=== PATIENT | female | born 1950 | race American Indian/Alaskan Native ===

== ENCOUNTER 2018-09-10 02:05 | Inpatient (IN) | payer MEDICARE ==
--- NOTE | 2018-09-10 02:36 | Cat Scan Report ---
CT head/brain wo con INDICATION / CLINICAL INFORMATION: MAIN: STROKE ALERT. TECHNIQUE: All CT scans at this location are performed using CT dose reduction for ALARA by means of automated e xposure control. COMPARISON: None available. FINDINGS: Ventricle size is normal. There is a subtle area of low density seen in the high right medial parieta l region (images 41 through 43). No mass or mass effect is seen. There is no evidence of intracranial hemorrhage. Visualized paranasal sinuses are clear. IMPRESSION: Subtle area of low density in the high right parietal region which could represent early infarction. Signer Name: Max Omalley MD FACR Signed: 09/10/2018 2:31 AM Workstation Name: [id number]
--- NOTE | 2018-09-10 02:42 | Emergency Department Report ---
HPI - General Chief Complaint: Neuro Symptoms/Deficit - HPI HPI: [facility] Date of Service: 09/10/2018 02:12:15 Impression: RO Acute Ischemic Stroke TIA Metrics: Last Known Well: Unknown Start Time: 09/10/2018 02:12:15 Arrival Time: 09/10/2018 02:05:00 Stamp Time: 09/10/2018 02:12:15 Time First Login Attempt: 09/10/2018 02:16:08 Video Start Time: 09/10/2018 02:16:08 History of Present Illness: Patient is a 68 years old Female who presents with symptoms of 68 yof with hx of TIA, htn, presents with Left leg numbness and feeling like her heart is racing. She became concerned that the numbness is worse and came in through triage. She states she has numbness in her leg for some time but it felt worse today. She states her previous TIA was related to feeling anxious as well but she couldn't elaborate on any focal sxs with that TIA. She takes an asa daily per her recollection. CT scan head per my review is negative for acute process. Stroke alert called from Triage Examination: 1A: Level of Consciousness - Alert; keenly responsive + 0 1B: Ask Month and Age - Both Questions Right + 0 1C: Blink Eyes & Squeeze Hands - Performs Both Tasks + 0 2: Test Horizontal Extraocular Movements - Normal + 0 3: Test Visual Ernst - No Visual Loss + 0 4: Test Facial Palsy (Use Grimace if Obtunded) - Normal symmetry + 0 5A: Test Left Arm Motor Drift - No Drift for 10 Seconds + 0 5B: Test Right Arm Motor Drift - No Drift for 10 Seconds + 0 6A: Test Left Leg Motor Drift - No Drift for 5 Seconds + 0 6B: Test Right Leg Motor Drift - No Drift for 5 Seconds + 0 7: Test Limb Ataxia (FNF/Heel-Larose) - No Ataxia + 0 8: Test Sensation - Normal; No sensory loss + 0 9: Test Language/Aphasia - Normal; No aphasia + 0 10: Test Dysarthria - Normal + 0 11: Test Extinction/Inattention - No abnormality + 0 NIHSS Score: 0 ED Past Medical Hx - Medications Home Medications: Home Medications Medication Instructions Recorded Confirmed Last Taken Type Atenolol [Tenormin] 12.5 mg PO DAILY 09/10/18 09/10/18 09/09/18 History Lisinopril [Zestril] 20 mg PO QDAY 09/10/18 09/10/18 09/09/18 History hydroCHLOROthiazide 25 mg PO DAILY 09/10/18 09/10/18 09/09/18 History [Hydrochlorothiazide] ED Review of Systems ROS: Stated complaint: LEFT SIDE WEAKNESS Other details as noted in HPI Physical Exam - Physical Exam Vital Signs: Vital Signs 09/10/18 09/10/18 02:14 02:36 Temperature 98.3 F Pulse Rate 82 71 Respiratory 20 18 Rate Blood Pressure 170/74 135/59 [Left] O2 Sat by Pulse 100 97 Oximetry ED Course Vital Signs 09/10/18 09/10/18 02:14 02:36 Temperature 98.3 F Pulse Rate 82 71 Respiratory 20 18 Rate Blood Pressure 170/74 135/59 [Left] O2 Sat by Pulse 100 97 Oximetry ED Medical Decision Making - Medical Decision Making Symptoms: 68 yof with hx of TIA, htn, presents with Left leg numbness and feeling like her heart is racing. NIHSS Start Assessment Time: 09/10/2018 02:25:14 Patient is not a candidate for tPA. Video End Time: 09/10/2018 02:27:00 CT head showed no acute hemorrhage or acute core infarct. CT head was reviewed. Advanced imaging was not obtained as the presentation was not suggestive of Large Vessel Occlusive Disease. ER physician not notified of the decision on thrombolytics management. Comments: Patient is not iv tpa candidate as exam is non localizing and sxs resolved. Our recommendations are outlined below. Recommendations: Antiplatelet Therapy Recommended Recommended Scan: MRI Head Carotid Dopplers Echocardiogram - Transthoracic Echocardiogram Lipid Panel to Be Obtained, if Not Done in the Last Three Months DVT prophylaxis: Choice of Primary Team Disposition: Sign Out Sign Out: Discussed with Emergency Department Provider Discussed with Primary Attending Patient was informed the Neurology Consult would happen via TeleHealth consult by way of interactive audio and video telecommunications and consented to receiving care in this manner. Due to the immediate potential for life-threatening deterioration due to underlying acute neurologic illness, I spent 35 minutes providing critical care. This time includes time for face to face visit via telemedicine, review of city hospital records, imaging studies and discussion of findings with providers, the patient and/or family. Dr Chino Pal [facility] Critical care attestation.: If time is entered above; I have spent that time in minutes in the direct care of this critically ill patient, excluding procedure time. ED Disposition Clinical Impression: TIA (transient ischemic attack) Disposition: DC-09 OP ADMIT IP TO THIS HOSP Is pt being admited?: Yes Does the pt Need Aspirin: Yes Condition: Stable
--- NOTE | 2018-09-10 03:58 | Emergency Department Report ---
ED Neuro Deficit HPI - General Chief Complaint: Neuro Symptoms/Deficit Stated Complaint: LEFT SIDE WEAKNESS Time Seen by Provider: 09/10/18 02:31 Source: patient Mode of arrival: Ambulatory Limitations: No Limitations - History of Present Illness Initial Comments: Patient is 68 years old female with history of hypertension, diabetes and a TIA. Patient presented to the ER complaining of sudden onset of left leg numbness started exactly at 2:12 AM. Patient denied any weakness. No speech problem or facial droop. Patient stated that she felt heart racing but denied any chest pain. Patient evaluated immediately by neurologist Dr. Pal who advised patient needed to be admitted to the hospital for stroke workup. -: This morning Location: other (left leg numbness) Place: home Context: sudden onset Associated Symptoms: denies other symptoms - Related Data Home Medications: Home Medications Medication Instructions Recorded Confirmed Last Taken Atenolol [Tenormin] 12.5 mg PO DAILY 09/10/18 09/10/18 09/09/18 Lisinopril [Zestril] 20 mg PO QDAY 09/10/18 09/10/18 09/09/18 hydroCHLOROthiazide 25 mg PO DAILY 09/10/18 09/10/18 09/09/18 [Hydrochlorothiazide] Allergies/Adverse Reactions: Allergies Allergy/AdvReac Type Severity Reaction Status Date / Time No Known Allergies Allergy Unverified 09/10/18 02:11 ED Review of Systems ROS: Stated complaint: LEFT SIDE WEAKNESS Other details as noted in HPI Comment: All other systems reviewed and negative Constitutional: denies: chills, fever Respiratory: denies: cough, shortness of breath, SOB with exertion Cardiovascular: denies: chest pain, palpitations Gastrointestinal: denies: abdominal pain, nausea, vomiting Neurological: numbness. denies: headache, weakness, paresthesias, confusion, abnormal gait ED Past Medical Hx - Past Medical History Previous Medical History?: Yes Hx Hypertension: Yes Hx CVA: Yes Hx Diabetes: Yes Additional medical history: stomach ulcer, - Social History Smoking Status: Never Smoker Substance Use Type: None - Medications Home Medications: Home Medications Medication Instructions Recorded Confirmed Last Taken Type Atenolol [Tenormin] 12.5 mg PO DAILY 09/10/18 09/10/18 09/09/18 History Lisinopril [Zestril] 20 mg PO QDAY 09/10/18 09/10/18 09/09/18 History hydroCHLOROthiazide 25 mg PO DAILY 09/10/18 09/10/18 09/09/18 History [Hydrochlorothiazide] ED Neuro Physical Exam - General Limitations: No Limitations General appearance: alert, in no apparent distress Suspected Stroke: Yes - Head Head exam: Present: atraumatic, normocephalic, normal inspection - Eye Eye exam: Present: normal appearance, PERRL - ENT ENT exam: Present: normal exam, normal orophraynx, mucous membranes moist - Neck Neck exam: Present: normal inspection, full ROM. Absent: tenderness, meningismus - Respiratory Respiratory exam: Present: normal lung sounds bilaterally - Cardiovascular Cardiovascular Exam: Present: regular rate, normal rhythm, normal heart sounds - GI/Abdominal GI/Abdominal exam: Present: soft, normal bowel sounds. Absent: distended, tenderness, guarding, rebound, rigid, organomegaly, mass, bruit, pulsatile mass, hernia - Extremities Exam Extremities exam: Present: normal inspection, full ROM, normal capillary refill. Absent: tenderness, pedal edema, joint swelling, calf tenderness - Back Exam Back exam: Present: normal inspection, full ROM. Absent: CVA tenderness (R), CVA tenderness (L), muscle spasm - Neurological Exam Neurological exam: Present: alert, oriented X3, CN II-XII intact, normal gait, reflexes normal - NIHSS Assessment Interval: Baseline 1a. Level of Consciousness: alert/keenly responsive 1b. LOC Questions: answers both correctly 1c. LOC Commands: performs tasks correctly 2. Best Gaze: normal 3. Visual: no visual loss 4. Facial Palsy: normal symmetrical movement 5b. Motor Arm Right: no drift 5a. Motor Arm Left: no drift 6a. Motor Leg Left: no drift 6b. Motor Leg Right: no drift 7. Limb Ataxia: absent 8. Sensory: normal 9. Best Language: no aphasia 10. Dysarthria: normal 11. Extinction/Inattention: no abnormality Total Score: 0 Stroke Severity: No Stroke Symptoms - Psychiatric Psychiatric exam: Present: normal mood - Skin Skin exam: Present: warm, intact, normal color ED Course Vital Signs 09/10/18 09/10/18 09/10/18 02:14 02:36 03:52 Temperature 98.3 F Pulse Rate 82 71 64 Respiratory 20 18 18 Rate Blood Pressure 170/74 135/59 116/52 [Left] O2 Sat by Pulse 100 97 98 Oximetry - Lab Data Lab Results 09/10/18 Range/Units 02:17 POC Glucose 117 H (70-105) Critical Care Time: Yes Critical care time in (mins) excluding proc time.: 30 Critical care attestation.: If time is entered above; I have spent that time in minutes in the direct care of this critically ill patient, excluding procedure time. ED Disposition Clinical Impression: TIA (transient ischemic attack) Disposition: - OP ADMIT IP TO THIS HOSP Is pt being admited?: Yes Condition: Stable
[2018-09-10 04:56] LABS: Basophils % (Auto) 0.6 % (0.0-1.8); Eosinophils # (Auto) 0.1 K/mm3 (0.0-0.4); Eosinophils % (Auto) 1.4 % (0.0-4.3); Hematocrit 34.9 % (30.3-42.9); Hemoglobin 11.5 gm/dl (10.1-14.3); Lymphocytes # (Auto) 2.3 K/mm3 (1.2-5.4); Lymphocytes % (Auto) 33.5 % (13.4-35.0); Mean Corpuscular HGB Conc 33 % (30-34); Mean Corpuscular Volume 84 fl (79-97); Monocytes # (Auto) 0.5 K/mm3 (0.0-0.8); Monocytes % (Auto) 7.8 % (0.0-7.3); Platelet Count 296 K/mm3 (140-440); Red Blood Count 4.18 M/mm3 (3.65-5.03); Red Cell Distribution Width 14.5 % (13.2-15.2)
[2018-09-10] MEDS ORDERED: SODIUM CHLORIDE FLUSH SYRINGE 10 ML IV PRN (05:15)
[2018-09-10] MEDS ORDERED: TYLENOL PO PRN (05:15)
[2018-09-10] MEDS ORDERED: DULCOLAX PR PRN (05:15)
[2018-09-10] MEDS ORDERED: ZOFRAN IV PRN (05:15)
--- NOTE | 2018-09-10 05:15 | History and Physical Report ---
History of Present Illness Date of examination: 09/10/18 History of present illness: 68 year-old woman with a history of hypertension, DM, h/o CVA was brought to the emergency room with complaints of left leg numbness. She states that she has been experiencing left leg numbness for more than 1 year, unclear if numbness worsen Review of systems Constitutional: no weight loss Ears, eyes, nose, mouth and throat: no nasal congestion, no nasal discharge, no sinus pressure, no vision change, no red eye. Neck: No neck pain or rigidity. Cardiovascular: no palpitations, chest pain Respiratory: no cough, shortness of breath Gastrointestinal: no hematochezia, abdominal pain Genitourinary : no frequency , no hematuria Musculoskeletal: no joint swelling or muscle ache Integumentary: no rash, no pruritis Neurological: + parathesias, no focal weakness Endocrine: no cold or heat intolerance, no polyuria or polydipsia Hematologic/Lymphatic: no easy bruising, no easy bleeding, no gland swelling Allergic/Immunologic: no urticaria, no angioedema. PAST MEDICAL HISTORY:hypertension, diabetes, h/o CVA PAST SURGICAL HISTORY: None SOCIAL HISTORY: no alcohol, tobacco, no drug use FAMILY HISTORY: Hypertension Medications and Allergies Allergies Allergy/AdvReac Type Severity Reaction Status Date / Time No Known Allergies Allergy Unverified 09/10/18 02:11 Home Medications Medication Instructions Recorded Confirmed Last Taken Type Aspirin EC 81 mg PO QDAY #30 tablet. 09/11/18 Unknown Rx AtorvaSTATin [Lipitor] 40 mg PO QHS #30 tablet 09/11/18 Unknown Rx Lisinopril [Zestril TAB] 10 mg PO QDAY #30 tablet 09/11/18 Unknown Rx Pantoprazole [Protonix] 40 mg PO QDAY #30 tablet 09/11/18 Unknown Rx Clopidogrel [Plavix] 75 mg PO QDAY #30 tablet 09/12/18 Unknown Rx Exam - Physical Exam Narrative exam: Gen. appearance: Patient lying in bed, no apparent distress HEENT: Normocephalic, atraumatic, pupils equally round and reactive to light, extraocular movement intact, and no sclericterus,. No JVD or thyromegaly or nodule,neck supple, no carotid bruit ,mucous membranes moist, no exudate or erythema Heart: S1, S2, regular rate and rhythm Lungs: Clear to auscultation bilaterally, breathing comfortable Abdomen: Positive bowel sounds, nontender, nondistended, no organomegaly Extremity: No edema, cyanosis, clubbing Skin: No rash, nodules, warm, dry Neuro: Oriented 3, cranial nerves II-12 intact, speech is fluent,motor intact, +paresthesia on the left leg - Constitutional Vitals: Temp Pulse Resp BP Pulse Ox 98.3 F 64 18 116/52 98 09/10/18 02:14 09/10/18 03:52 09/10/18 03:52 09/10/18 03:52 09/10/18 03:52 Results - Labs CBC & Chem 7: 09/10/18 04:44 09/10/18 08:59 Labs: Abnormal lab results 09/10/18 09/10/18 Range/Units 02:17 04:44 MCH 27 L (28-32) pg [place] % (Auto) 7.8 H (0.0-7.3) % POC Glucose 117 H (70-105) - Imaging and Cardiology CT scan - chest: report reviewed Assessment and Plan Assessment Acute CVA Hypertersion Diabetes H/o CVA Plan Admit to medicine Do neuro checks, swallow screen MR head, neck, echo Consult neurology, PT/OT Start aspirin, statin IV hydralazine for blood pressure control Check fingersticks, start sliding scale DVT prophalaxis
[2018-09-10] MEDS ORDERED: D50W (25GM) Syringe IV PRN ×2 (05:18→06:32)
[2018-09-10 05:24] LABS: INR 0.94 (0.87-1.13)
[2018-09-10 05:25] LABS: Thrombin Time 17.3 Sec. (15.1-19.6)
[2018-09-10] MEDS ORDERED: APRESOLINE IV PRN (06:34)
[2018-09-10] MEDS: HumaLOG SUB-Q SCH ×4 (09:23→21:03)
--- NOTE | 2018-09-10 09:42 | Event Note ---
Date: 09/10/18 Patient seen and examined 68-year-old female with a history of hypertension presented with strokelike symptoms Admitted with stroke workup We'll follow MRI, 2-D echo and carotid Doppler results Monitor clinically, follow PT OT and ST evaluation
[2018-09-10] MEDS ORDERED: ASPIRIN PO SCH (10:00)
[2018-09-10] MEDS: ASPIRIN PO SCH ×2 (10:00→11:12)
[2018-09-10] MEDS ORDERED: LOVENOX SUB-Q SCH (10:00)
[2018-09-10] MEDS ORDERED: ATIVAN IV PRN ×2 (10:02→10:03)
--- NOTE | 2018-09-10 10:31 | Progress Note ---
Subjective Date of service: 09/10/18 Interval history: very clear deep white matter stroke of the right hemisphere is noted await MRI prior hx to be reviewed Objective - Vital Sign Vital Signs - 12hr 09/10/18 09/10/18 09/10/18 02:14 02:36 02:57 Temperature 98.3 F Pulse Rate 82 71 62 Respiratory 20 18 13 Rate Blood Pressure 135/59 Blood Pressure 170/74 135/59 [Left] O2 Sat by Pulse 100 97 Oximetry 09/10/18 09/10/18 09/10/18 03:00 03:16 03:30 Temperature Pulse Rate 61 60 60 Respiratory 16 15 13 Rate Blood Pressure 135/59 117/53 117/53 Blood Pressure [Left] O2 Sat by Pulse Oximetry 09/10/18 09/10/18 09/10/18 03:46 03:52 04:00 Temperature Pulse Rate 61 64 60 Respiratory 15 18 15 Rate Blood Pressure 116/52 116/52 Blood Pressure 116/52 [Left] O2 Sat by Pulse 98 Oximetry 09/10/18 09/10/18 09/10/18 04:16 04:30 04:46 Temperature Pulse Rate 60 60 61 Respiratory 14 12 16 Rate Blood Pressure 126/56 126/56 138/60 Blood Pressure [Left] O2 Sat by Pulse Oximetry 09/10/18 09/10/18 09/10/18 05:00 05:16 05:30 Temperature Pulse Rate 61 63 60 Respiratory 16 15 14 Rate Blood Pressure 138/60 126/53 126/53 Blood Pressure [Left] O2 Sat by Pulse Oximetry 09/10/18 09/10/18 09/10/18 05:46 06:00 06:10 Temperature Pulse Rate 62 72 64 Respiratory 16 16 15 Rate Blood Pressure 122/56 122/56 119/59 Blood Pressure [Left] O2 Sat by Pulse Oximetry 09/10/18 09:01 Temperature 97.9 F Pulse Rate 86 Respiratory 18 Rate Blood Pressure 137/68 Blood Pressure [Left] O2 Sat by Pulse 100 Oximetry - Laboratory Findings CBC and BMP: 09/10/18 04:44 09/10/18 08:59 Abnormal Lab Findings: Abnormal Labs 09/10/18 09/10/18 09/10/18 02:17 04:44 04:44 MCH 27 L [place] % (Auto) 7.8 H POC Glucose 117 H Total Creatine Kinase 159 H
--- NOTE | 2018-09-10 11:45 | Magnetic Resonance Report ---
MR brain wo con INDICATION / CLINICAL INFORMATION: 68 years Female; stroke. TECHNIQUE: Multiplanar, multisequence MR images of the brain were obtained. COMPARISON: None available. FINDINGS: BRAIN / INTRACRANIAL CONTENTS: No acute ischemia, acute hemorrhage, mass effect, midline shift, or hy drocephalus. No chronic infarct or atrophy. There are mild areas of increased signal intensity on FLAIR imaging in the white matter of the cerebr al hemispheres. These are nonspecific findings and may be related to microangiopathy (hypertension, d iabetes, atherosclerosis), given the patient's age. CRANIOCERVICAL JUNCTION: No significant abnormality. VASCULAR FLOW-VOIDS: Slow or no flow suggested in the nondominant left vertebral artery. ORBITS: No significant abnormality of visualized orbits. SINUSES / MASTOIDS: Mucosal thickening in the ethmoids and mastoid air cells. 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 IMPRESSION: 1. No focal mass, hemorrhage, hydrocephalus, or acute ischemia. Signer Name: Hunter Masters MD, III Signed: 09/10/2018 11:41 AM Workstation Name: [id number]
--- NOTE | 2018-09-10 12:03 | Magnetic Resonance Report ---
MR MRA/MRV head wo con INDICATION / CLINICAL INFORMATION: 68 years Female; stroke. 68-year-old female with new onset, bilateral lower extremity numbness and ti ngling TECHNIQUE: 3-D time of flight. NASCET type criteria used to evaluate stenoses. Motion artifact COMPARISON: None available. FINDINGS: INTERNAL CAROTID ARTERIES: Focal areas of high-grade narrowing suggested in the communicating portion s of both internal carotid arteries. VERTEBROBASILAR SYSTEM: The dominant right vertebral and basilar arteries appear to be widely patent. Slow or no flow suggested in the nondominant left vertebral artery. DISTAL BRANCHES: Short segment, moderate to high-grade narrowing suggested at the origin of the A1 se gment on the left. ANEURYSM: None identified. IMPRESSION: 1. Multiple areas of narrowing identified, as described above. 2. Slow or no flow suggested in the nondominant left vertebral artery. Signer Name: Hunter Masters MD, III Signed: 09/10/2018 11:59 AM Workstation Name: [id number]
--- NOTE | 2018-09-10 12:08 | Progress Note ---
Subjective Date of service: 09/10/18 Interval history: I went over the MRI of the barin and it is normal to my reeview and formal reports as well the MRA is difficult to comment on this may be basis for the TIA's we note ECHO and u/s Objective - Vital Sign Vital Signs - 12hr 09/10/18 09/10/18 09/10/18 02:14 02:36 02:57 Temperature 98.3 F Pulse Rate 82 71 62 Pulse Rate [ Apical] Pulse Rate [ Left Radial] Pulse Rate [ Right Radial] Respiratory 20 18 13 Rate Blood Pressure 135/59 Blood Pressure 170/74 135/59 [Left] O2 Sat by Pulse 100 97 Oximetry 09/10/18 09/10/18 09/10/18 03:00 03:16 03:30 Temperature Pulse Rate 61 60 60 Pulse Rate [ Apical] Pulse Rate [ Left Radial] Pulse Rate [ Right Radial] Respiratory 16 15 13 Rate Blood Pressure 135/59 117/53 117/53 Blood Pressure [Left] O2 Sat by Pulse Oximetry 09/10/18 09/10/18 09/10/18 03:46 03:52 04:00 Temperature Pulse Rate 61 64 60 Pulse Rate [ Apical] Pulse Rate [ Left Radial] Pulse Rate [ Right Radial] Respiratory 15 18 15 Rate Blood Pressure 116/52 116/52 Blood Pressure 116/52 [Left] O2 Sat by Pulse 98 Oximetry 09/10/18 09/10/18 09/10/18 04:16 04:30 04:46 Temperature Pulse Rate 60 60 61 Pulse Rate [ Apical] Pulse Rate [ Left Radial] Pulse Rate [ Right Radial] Respiratory 14 12 16 Rate Blood Pressure 126/56 126/56 138/60 Blood Pressure [Left] O2 Sat by Pulse Oximetry 09/10/18 09/10/18 09/10/18 05:00 05:16 05:30 Temperature Pulse Rate 61 63 60 Pulse Rate [ Apical] Pulse Rate [ Left Radial] Pulse Rate [ Right Radial] Respiratory 16 15 14 Rate Blood Pressure 138/60 126/53 126/53 Blood Pressure [Left] O2 Sat by Pulse Oximetry 09/10/18 09/10/18 09/10/18 05:46 06:00 06:10 Temperature Pulse Rate 62 72 64 Pulse Rate [ Apical] Pulse Rate [ Left Radial] Pulse Rate [ Right Radial] Respiratory 16 16 15 Rate Blood Pressure 122/56 122/56 119/59 Blood Pressure [Left] O2 Sat by Pulse Oximetry 09/10/18 09/10/18 07:19 09:01 Temperature 97.9 F Pulse Rate 86 Pulse Rate [ 82 Apical] Pulse Rate [ 82 Left Radial] Pulse Rate [ 82 Right Radial] Respiratory 18 18 Rate Blood Pressure 137/68 Blood Pressure [Left] O2 Sat by Pulse 99 100 Oximetry - Laboratory Findings CBC and BMP: 09/10/18 04:44 09/10/18 08:59 Abnormal Lab Findings: Abnormal Labs 09/10/18 09/10/18 09/10/18 02:17 04:44 04:44 MCH 27 L [place] % (Auto) 7.8 H POC Glucose 117 H Total Creatine Kinase 159 H
[2018-09-10] MEDS: LOVENOX SUB-Q SCH (13:14)
[2018-09-11 06:04] LABS: Chol/HDL Ratio 5.04 %
[2018-09-11] MEDS: MILK OF MAGNESIA PO PRN ×2 (06:43→20:53)
[2018-09-11] MEDS: HumaLOG SUB-Q SCH ×4 (08:48→22:47)
--- NOTE | 2018-09-11 08:56 | Progress Note ---
Subjective Date of service: 09/11/18 Interval history: went over the MRA and she will need CTA of head and neck.... the MRA reports suggests high grade stenosis but will assess further she has had TIA 's before Objective - Vital Sign Vital Signs - 12hr 09/11/18 09/11/18 09/11/18 00:03 03:36 04:36 Temperature 98.1 F 98.5 F Pulse Rate 65 65 65 Respiratory 18 18 Rate Blood Pressure 132/72 153/70 O2 Sat by Pulse 97 100 Oximetry 09/11/18 09/11/18 09/11/18 08:14 08:31 08:40 Temperature 97.7 F Pulse Rate 70 Respiratory 15 20 Rate Blood Pressure 136/68 O2 Sat by Pulse 97 100 Oximetry - Laboratory Findings CBC and BMP: 09/10/18 04:44 09/10/18 08:59 Abnormal Lab Findings: Abnormal Labs 09/10/18 09/10/18 09/10/18 02:17 04:44 04:44 MCH 27 L [place] % (Auto) 7.8 H POC Glucose 117 H Total Creatine Kinase 159 H Cholesterol LDL Cholesterol Direct 09/10/18 09/10/18 09/10/18 12:36 16:09 20:24 MCH [place] % (Auto) POC Glucose 245 H 69 L 115 H Total Creatine Kinase Cholesterol LDL Cholesterol Direct 09/11/18 09/11/18 04:37 07:53 MCH [place] % (Auto) POC Glucose 112 H Total Creatine Kinase Cholesterol 227 H LDL Cholesterol Direct 172 H
[2018-09-11] MEDS: ASPIRIN PO SCH (09:58)
[2018-09-11] MEDS: LOVENOX SUB-Q SCH (09:58)
--- NOTE | 2018-09-11 15:30 | Discharge Summary ---
Providers - Providers Date of Admission: 09/10/18 06:15 Date of discharge: 09/11/18 Attending physician: SARA JEAN 09/10/18 Consult to Physician [CONS] Routine Comment: Consulting Provider: LINDSAY GUO Physician Instructions: Reason For Exam: cva 09/10/18 05:15 Occupational Therapy Evaluate and Treat [CONS] Routine Comment: Reason For Exam: Neuro deficits Physical Therapy Evaluation and Treat [CONS] Routine Comment: Reason For Exam: Neuro deficits Primary care physician: VIVEK LAINEZ Hospitalization Condition: Stable Hospital course: Discharge diagnosis: TIA Hypertersion Diabetes H/o CVA Disposition: DC-01 TO HOME OR SELFCARE Time spent for discharge: 34 minutes Core Measure Documentation - Palliative Care Palliative Care/ Comfort Measures: Not Applicable - Stroke Discharge Requirements Statin for LDL = or >70 mg/dl on DC: Yes Anticoag for atrial fib/atrial flutter: Not Applicable Antithrombotic for ischemic stroke: Yes Exam - Constitutional Vitals: Temp Pulse Resp BP Pulse Ox 97.7 F 70 17 136/68 100 09/11/18 08:40 09/11/18 08:40 09/11/18 09:31 09/11/18 08:40 09/11/18 08:40 General appearance: Present: no acute distress, well-nourished - EENT Eyes: Present: PERRL ENT: hearing intact, clear oral mucosa - Neck Neck: Present: supple, normal ROM - Respiratory Respiratory effort: normal Respiratory: bilateral: CTA - Cardiovascular Heart Sounds: Present: S1 & S2. Absent: rub, click - Extremities Extremities: pulses symmetrical, No edema Peripheral Pulses: within normal limits - Abdominal General gastrointestinal: Present: soft, non-tender, non-distended, normal bowel sounds - Integumentary Integumentary: Present: clear, warm, dry - Musculoskeletal Musculoskeletal: gait normal, strength equal bilaterally - Psychiatric Psychiatric: appropriate mood/affect, intact judgment & insight - Neurologic Neurologic: CNII-XII intact, moves all extremities Plan Activity: advance as tolerated Weight Bearing Status: Weight Bear as Tolerated Diet: low fat, low salt Follow up with: VIVEK LAINEZ MD [Primary Care Provider] - 7 Days Prescriptions: AtorvaSTATin [Lipitor] 40 mg PO QHS #30 tablet Aspirin EC 81 mg PO QDAY #30 tablet.
[2018-09-11] MEDS ORDERED: MIRALAX 3350 PO PRN (16:00)
[2018-09-11] MEDS: COLACE PO SCH (20:52)
[2018-09-12] MEDS: COLACE PO SCH ×2 (05:47→09:02)
[2018-09-12 08:16] VITALS: BP 143/66
[2018-09-12] MEDS: HumaLOG SUB-Q SCH ×3 (08:51→17:20)
--- NOTE | 2018-09-12 08:58 | Cat Scan Report ---
CTA neck without and with intravenous contrast material CLINICAL HISTORY: TIA TECHNIQUE: Following acquisition of a timing bolus 0.625 mm thick contiguous axial scans were obtained from aort ic arch to the skull base during rapid bolus intravenous contrast infusion. In addition to evaluation of axial source images multiplanar reconstructions were produced and reviewed for this report. Three -dimensional reconstructions were produced utilizing an independent workstation. These were also revi ewed for this report. FINDINGS: No abnormalities are seen at the origins of the great vessels. Aorta: No abnormalities are identified at the origins of the great vessels. Left carotid artery: Left common carotid artery has an unremarkable appearance. Extensively calcified atherosclerotic plaque is present at the carotid bifurcation extending up into the proximal LICA. Ba sed on massive like criteria there is a less than 50% stenosis at the carotid bifurcation. The remain concha of the cervical segments of the left internal carotid artery have an unremarkable appearance. Right carotid artery: No abnormalities are seen along the course of the right common carotid artery. Minimal calcified atherosclerotic plaque is observed along the posterior aspect of the carotid bifurc ation with no indication of stenosis. Cervical segments of the R ICA have a normal appearance. The right vertebral artery is dominant. Intermittent contrast opacification of a smaller left vertebr al artery is observed. The left vertebral artery is irregular in contour. Possibility of chronic diss ection could be considered. There is no indication of an intimal flap within this vessel. There is no indication of pseudoaneurysm formation. There is not significant contributor addition to the basilar artery from the left vertebral artery. The degree of stenosis, if any, is determined utilizing NASCET like criteria. In this case there is a less than 50% stenosis at the origin of the LICA. Evaluation of the nonvascular soft tissue structures reveal no abnormality. There is no indication of cervical lymphadenopathy. No abnormalities are seen along the course of the airway. Visualized porti ons of the parotid glands and the submandibular salivary glands have a normal appearance. Thyroid gla nd has a normal appearance. Evaluation of the lung apices reveals no evidence of lung nodule or infil trate. Evaluation of the cervical spine revealed no significant abnormalities. Incidental note is mad e of changes of cataract surgery on the right. IMPRESSION: 1. Calcified atherosclerotic plaque contributes to less than 50% stenosis at the origin of the left i nternal carotid artery. 2. Abnormal appearing left vertebral artery as described above. The possibility of chronic dissection could be considered. Contrast dose report: Omnipaque 350: 100 ml, administered intravenously All CT examinations performed at this facility utilize modulated dose reduction, iterative reconstruc tion or weight-based dosing, as appropriate, to obtain a radiation dose which is as low as can reason ably be achieved. Signer Name: Cordell Hernandez MD Signed: 09/12/2018 8:54 AM Workstation Name: [id number]
[2018-09-12] MEDS: ASPIRIN PO SCH (09:02)
[2018-09-12] MEDS: LOVENOX SUB-Q SCH (09:02)
--- NOTE | 2018-09-12 09:14 | Cat Scan Report ---
CTA head with IV contrast INDICATION: TIA, left-sided weakness and tingling.. TECHNIQUE: CTA head with IV contrast. The patient received 100 mL of IV Omnipaque 350. All CT scans at this loca tion are performed using CT dose reduction for ALARA by means of automated exposure control. 3 plane MIP reconstructions were produced. COMPARISON: Previous MRA head on 09/10/2018. FINDINGS: Vascular findings: The right vertebral artery is developmentally dominant. The left vertebral artery essentially ends in the left PICA. This is often developmental in origin rather than secondary to vertebral artery occlu brodie. The remainder of the basilar artery and posterior circulation arteries appear to be patent. In the anterior circulation, there is high-grade flow-limiting stenosis of about 80-90% of the right supraclinoid internal carotid artery due to mixed plaque. Similar stenosis is also seen in the left s upraclinoid ICA. Bilateral middle cerebral arteries and anterior cerebral arteries demonstrate no sig nificant stenosis. No intracranial aneurysms are notified. Nonvascular findings: The brain appears unchanged, without evidence of acute hemorrhage, brain edema, mass effect, or hydro cephalus. IMPRESSION: 1. High-grade flow-limiting stenosis in the bilateral supraclinoid internal carotid arteries of about 80-90%. 2. The left vertebral artery essentially ends in the left PICA. This is often a developmental variant rather than evidence of left vertebral artery occlusion. Signer Name: Memo Diaz MD Signed: 09/12/2018 9:10 AM Workstation Name: [id number]
--- NOTE | 2018-09-12 09:49 | Progress Note ---
Assessment and Plan TIA Hypertersion Diabetes H/o CVA - CT head/MRI brain w/o any acute CVA - cont aspirin, statin, neurology following - ordered CTA head/neck to assess carotid arteries and IC vessels - pending - Monitor BP, SSI for maintaing BG - Lovenox for DVt Px Disposition: home following CTA head/neck result Subjective Date of service: 09/11/18 Interval history: Patient seen and examined tolerating diet No new complaint except ask for stool softner Objective - Constitutional Vitals: Vital Signs - 12hr 09/11/18 09/12/18 09/12/18 23:39 03:44 06:01 Temperature 97.5 F L 98.1 F Pulse Rate 61 61 61 Respiratory 16 16 Rate Blood Pressure 118/51 135/59 O2 Sat by Pulse 100 91 Oximetry 09/12/18 09/12/18 08:07 09:15 Temperature 98.0 F Pulse Rate 60 Respiratory 18 Rate Blood Pressure 143/66 O2 Sat by Pulse Oximetry General appearance: Present: no acute distress, well-nourished - EENT Eyes: PERRL, EOM intact ENT: hearing intact, clear oral mucosa Ears: bilateral: normal - Neck Neck: supple, normal ROM - Respiratory Respiratory effort: normal Respiratory: bilateral: CTA - Cardiovascular Rhythm: regular Heart Sounds: Present: S1 & S2. Absent: gallop, rub Extremities: pulses intact, No edema, normal color, Full ROM - Gastrointestinal General gastrointestinal: Present: soft, non-tender, non-distended, normal bowel sounds - Integumentary Integumentary: clear, warm, dry - Musculoskeletal Musculoskeletal: 1, strength equal bilaterally - Neurologic Neurologic: moves all extremities - Psychiatric Psychiatric: memory intact, appropriate mood/affect, intact judgment & insight - Labs CBC & Chem 7: 09/10/18 04:44 09/10/18 08:59 Labs: Abnormal lab results 09/11/18 09/11/18 09/12/18 Range/Units 11:37 20:57 08:13 POC Glucose 161 H 139 H 111 H (70-105) - Imaging and cardiology CT Scan - head: report reviewed MRI - head: report reviewed
[2018-09-12] MEDS ORDERED: HALFPRIN EC PO SCH (10:00)
[2018-09-12] MEDS ORDERED: PLAVIX PO SCH (10:00)
--- NOTE | 2018-09-12 13:36 | Discharge Summary ---
Providers - Providers Date of Admission: 09/10/18 06:15 Date of discharge: 09/12/18 Attending physician: SARA JEAN 09/10/18 Consult to Physician [CONS] Routine Comment: Consulting Provider: LINDSAY GUO Physician Instructions: Reason For Exam: cva 09/10/18 05:15 Occupational Therapy Evaluate and Treat [CONS] Routine Comment: Reason For Exam: Neuro deficits Physical Therapy Evaluation and Treat [CONS] Routine Comment: Reason For Exam: Neuro deficits 09/12/18 09:45 Consult to Physician [CONS] Routine Comment: Consulting Provider: DENAE ETIENNE Physician Instructions: Reason For Exam: high grade carotis stenosis Primary care physician: VIVEK LAINEZ Hospitalization Condition: Stable Hospital course: Discharge diagnosis: TIA Hypertersion Diabetes H/o CVA - CT head/MRI brain w/o any acute CVA - cont aspirin, statin, neurology following - CTA head/neck showed b/l high grade carotid arteries stenosis - consulted vascular - Monitor BP, SSI for maintaing BG - Lovenox for DVt Px Disposition: DC/[place] Time spent for discharge: 34 minutes Core Measure Documentation - Palliative Care Palliative Care/ Comfort Measures: Not Applicable - Core Measures Any of the following diagnoses?: stroke - Stroke Discharge Requirements Statin for LDL = or >70 mg/dl on DC: Yes Anticoag for atrial fib/atrial flutter: Not Applicable Antithrombotic for ischemic stroke: Yes Exam - Physical Exam Narrative exam: General appearance: Present: no acute distress, well-nourished - EENT Eyes: PERRL, EOM intact ENT: hearing intact, clear oral mucosa Ears: bilateral: normal - Neck Neck: supple, normal ROM - Respiratory Respiratory effort: normal Respiratory: bilateral: CTA - Cardiovascular Rhythm: regular Heart Sounds: Present: S1 & S2. Absent: gallop, rub Extremities: pulses intact, No edema, normal color, Full ROM - Gastrointestinal General gastrointestinal: Present: soft, non-tender, non-distended, normal bowel sounds - Integumentary Integumentary: clear, warm, dry - Musculoskeletal Musculoskeletal: 1, strength equal bilaterally - Neurologic Neurologic: moves all extremities - Psychiatric Psychiatric: memory intact, appropriate mood/affect, intact judgment & insight - Constitutional Vitals: Temp Pulse Resp BP Pulse Ox 98.0 F 60 18 143/66 91 09/12/18 08:07 09/12/18 09:15 09/12/18 08:07 09/12/18 08:07 09/12/18 03:44 Plan Activity: advance as tolerated Weight Bearing Status: Weight Bear as Tolerated Diet: low fat, low salt Follow up with: VIVEK LAINEZ MD [Primary Care Provider] - 7 Days DENAE ETIENNE MD [Staff Physician] - 7 Days LINDSAY GUO MD [Staff Physician] - 7 Days Prescriptions: AtorvaSTATin [Lipitor] 40 mg PO QHS #30 tablet Aspirin EC 81 mg PO QDAY #30 tablet. Clopidogrel [Plavix] 75 mg PO QDAY #30 tablet Pantoprazole [Protonix] 40 mg PO QDAY #30 tablet Lisinopril [Zestril TAB] 10 mg PO QDAY #30 tablet
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
--- NOTE | 2018-09-12 15:57 | Progress Note ---
Subjective Date of service: 09/12/18 Interval history: the CTA ios certainly compliacated I went over with Dr. Chew... 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 based on hypoplastic vertebral I do not see clear evidence of dissection but await vascular input can be discharged on plavix qand I will follow up in te office the narrowing of the internal acrotids does point to TIA Objective - Vital Sign Vital Signs - 12hr 09/12/18 09/12/18 09/12/18 06:01 08:07 09:15 Temperature 98.0 F Pulse Rate 61 60 Respiratory 18 Rate Blood Pressure 143/66 - Laboratory Findings CBC and BMP: 09/10/18 04:44 09/10/18 08:59 Abnormal Lab Findings: Abnormal Labs 09/10/18 09/10/18 09/10/18 02:17 04:44 04:44 MCH 27 L [place] % (Auto) 7.8 H POC Glucose 117 H Total Creatine Kinase 159 H Cholesterol LDL Cholesterol Direct 09/10/18 09/10/18 09/10/18 12:36 16:09 20:24 MCH [place] % (Auto) POC Glucose 245 H 69 L 115 H Total Creatine Kinase Cholesterol LDL Cholesterol Direct 09/11/18 09/11/18 09/11/18 04:37 07:53 11:37 MCH [place] % (Auto) POC Glucose 112 H 161 H Total Creatine Kinase Cholesterol 227 H LDL Cholesterol Direct 172 H 09/11/18 09/12/18 09/12/18 20:57 08:13 11:51 MCH [place] % (Auto) POC Glucose 139 H 111 H 158 H Total Creatine Kinase Cholesterol LDL Cholesterol Direct
[2018-09-13] MEDS ORDERED: HALFPRIN EC PO SCH (10:00)
== END 2018-09-12 17:15 | disposition home or self-care (01) | DRG 69 ==
LOC: ED 02:05 → 4A 06:15
PROVIDERS: ADMIT Internal Medicine; ATTEND Internal Medicine
DX: G45.9 Transient cerebral ischemic attack, unspecified (principal); E11.8 Type 2 diabetes mellitus with unspecified complications; I10 Essential (primary) hypertension; Z86.73 Personal history of transient ischemic attack (TIA), and cerebral infarction without residual deficits; Z82.49 Family history of ischemic heart disease and other diseases of the circulatory system; Z79.82 Long term (current) use of aspirin; Z87.11 Personal history of peptic ulcer disease; Z79.84 Long term (current) use of oral hypoglycemic drugs
CPT/HCPCS: 36415; 70450; 70496; 70498; 70544; 70551; 80061; 82550; 82553; 82565; 82962; 84484; 85025; 85610; 85670; 85730; 93005; 93010; 93306; G0378; A9270-GY; J1650; J1815; Q9967

== ENCOUNTER 2019-12-01 21:22 | Emergency (ER) | payer MEDICARE ==
--- NOTE | 2019-12-02 02:11 | Emergency Department Report ---
ED General Adult HPI - General Chief complaint: High BP Stated complaint: HIGH BP Time Seen by Provider: 12/02/19 01:34 Source: patient Mode of arrival: Ambulatory Limitations: No Limitations - History of Present Illness Initial comments: Patient is a 69-year-old -[place] female with a history of hypertension, CVA, DMII, and Anxiety who presents for elevated bp for 3 days,. BP to IS 210/84 today pt denies cp no sob, no dizziness, no lightheadedness, pt is ambulatory with steady gait. There are no other modifying factors , pt is currently taking Lisinopril 10 mg po daily for htn. Severity scale (0 -10): 0 - Related Data Previous Rx's Medication Instructions Recorded Last Taken Type Aspirin EC [Halfprin EC] 81 mg PO QDAY #30 tablet. 09/11/18 Unknown Rx AtorvaSTATin [Lipitor] 40 mg PO QHS #30 tablet 09/11/18 Unknown Rx Pantoprazole [Protonix] 40 mg PO QDAY #30 tablet 09/11/18 Unknown Rx lisinopriL [Zestril TAB] 10 mg PO QDAY #30 tablet 09/11/18 Unknown Rx Clopidogrel [Plavix] 75 mg PO QDAY #30 tablet 09/12/18 Unknown Rx hydroCHLOROthiazide [Hctz] 12.5 mg PO QDAY #15 capsule 12/02/19 Unknown Rx Allergies Allergy/AdvReac Type Severity Reaction Status Date / Time No Known Allergies Allergy Unverified 09/10/18 02:11 ED Review of Systems ROS: Stated complaint: HIGH BP Other details as noted in HPI Constitutional: denies: chills, fever Eyes: denies: eye pain, eye discharge, vision change ENT: denies: ear pain, throat pain Respiratory: denies: cough, shortness of breath, wheezing Cardiovascular: denies: chest pain, palpitations Endocrine: no symptoms reported Gastrointestinal: denies: abdominal pain, nausea, diarrhea Genitourinary: denies: urgency, dysuria, discharge Musculoskeletal: denies: back pain, joint swelling, arthralgia Skin: denies: rash, lesions Neurological: denies: headache, weakness, paresthesias Psychiatric: denies: anxiety, depression Hematological/Lymphatic: denies: easy bleeding, easy bruising ED Past Medical Hx - Past Medical History Previous Medical History?: Yes Hx Hypertension: Yes Hx CVA: Yes Hx Diabetes: Yes Additional medical history: stomach ulcer, - Surgical History Past Surgical History?: Yes Hx Cholecystectomy: Yes Additional Surgical History: Tonsils - Social History Smoking Status: Never Smoker Substance Use Type: None - Medications Home Medications: Home Medications Medication Instructions Recorded Confirmed Last Taken Type Aspirin EC [Halfprin EC] 81 mg PO QDAY #30 tablet. 09/11/18 Unknown Rx AtorvaSTATin [Lipitor] 40 mg PO QHS #30 tablet 09/11/18 Unknown Rx Pantoprazole [Protonix] 40 mg PO QDAY #30 tablet 09/11/18 Unknown Rx lisinopriL [Zestril TAB] 10 mg PO QDAY #30 tablet 09/11/18 Unknown Rx Clopidogrel [Plavix] 75 mg PO QDAY #30 tablet 09/12/18 Unknown Rx hydroCHLOROthiazide [Hctz] 12.5 mg PO QDAY #15 capsule 12/02/19 Unknown Rx ED Physical Exam - General Limitations: No Limitations General appearance: alert, in no apparent distress - Head Head exam: Present: atraumatic, normocephalic - Eye Eye exam: Present: normal appearance - ENT ENT exam: Present: mucous membranes moist - Neck Neck exam: Present: normal inspection, full ROM - Respiratory Respiratory exam: Present: normal lung sounds bilaterally. Absent: respiratory distress, wheezes, stridor, chest wall tenderness - Cardiovascular Cardiovascular Exam: Present: regular rate, normal rhythm, normal heart sounds. Absent: systolic murmur, diastolic murmur, rubs, gallop - GI/Abdominal GI/Abdominal exam: Present: soft, normal bowel sounds. Absent: distended, tenderness, bruit, hernia - Rectal Rectal exam: Present: deferred - Extremities Exam Extremities exam: Present: normal inspection, full ROM, normal capillary refill. Absent: tenderness, pedal edema - Back Exam Back exam: Present: normal inspection, full ROM. Absent: vertebral tenderness - Neurological Exam Neurological exam: Present: alert, oriented X3, CN II-XII intact, normal gait, reflexes normal - Expanded Neurological Exam Expanded Patient oriented to: Present: person, place, time Speech: Present: fluid speech Motor strength exam: RUE: 5, LUE: 5, RLE: 5, LLE: 5 Best Eye Response ([place]): (4) open spontaneously Best Motor Response (Daniela): (6) obeys commands Best Verbal Response ([place]): (5) oriented [place] Total: 15 - Psychiatric Psychiatric exam: Present: normal affect, normal mood - Skin Skin exam: Present: warm, dry, intact, normal color. Absent: rash ED Course Vital Signs 12/01/19 12/01/19 23:04 23:18 Temperature 98.3 F Pulse Rate 106 H 80 Respiratory 18 Rate Blood Pressure 201/84 Blood Pressure 210/78 [Left] O2 Sat by Pulse 100 100 Oximetry ED Medical Decision Making - Lab Data Result diagrams: 12/02/19 02:32 12/02/19 02:32 - EKG Data EKG shows normal: sinus rhythm Rate: normal - EKG Data When compared to previous EKG there are: previous EKG unavailable Interpretation: normal EKG (NSR no ST Elevated PR, ekg interp be ed attending. ) - Radiology Data Radiology results: report reviewed, image reviewed Findings Reporting MD: Goran Dallas Dictation Time: December 02, 2019 01:56 Supervisor Reclamation: Not available Accreditation Manager Date: CHEST 2 VIEW INDICATION / CLINICAL INFORMATION: elevated bp and tachy. COMPARISON: None available. FINDINGS: SUPPORT DEVICES: None. HEART / MEDIASTINUM: No significant abnormality. LUNGS / PLEURA: No significant pulmonary or pleural abnormality.. No pneumothorax. ADDITIONAL FINDINGS: No significant additional findings. IMPRESSION: 1. No acute findings. Signer Name: Goran Dallas MD Signed: 12/02/2019 1:56 AM Workstation Name: [id number] - Medical Decision Making EKG is normal normal sinus rhythm no ST elevation EKG interpreted by ED attending. Chest x-ray is normal no infiltrates no opacities. Labs are normal. Heart score is 0. Symptoms are improved. Patient is tolerating p.o. intake there are no other complaints at this time. Patient will continue lisinopril as prescribed by PCP continue hydrochlorothiazide as prescribed by PCP follow-up with PCP in 2 to 3 days. Patient verbalizes agreement and understanding with discharge plan. Patient DC'd home in stable condition at this time. Patient is currently alert oriented x3 and ambulatory with steady gait, with no acute distress at this time Critical care attestation.: If time is entered above; I have spent that time in minutes in the direct care of this critically ill patient, excluding procedure time. ED Disposition Clinical Impression: Stress HTN (hypertension) Qualifiers: Hypertension type: essential hypertension Qualified Code(s): I10 - Essential (primary) hypertension Disposition: TO HOME OR SELFCARE Is pt being admited?: No Does the pt Need Aspirin: No Condition: Stable Instructions: Hypertension (ED), DASH Eating Plan (ED), Stress (ED) Prescriptions: hydroCHLOROthiazide [Hctz] 12.5 mg PO QDAY #15 capsule Referrals: TIERRA GALARZA MD [Primary Care Provider] - 3-5 Days Forms: Work/School Release Form(ED) Time of Disposition: 03:29
--- NOTE | 2019-12-02 03:01 | XRay Report ---
CHEST 2 VIEW INDICATION / CLINICAL INFORMATION: elevated bp and tachy. COMPARISON: None available. FINDINGS: SUPPORT DEVICES: None. HEART / MEDIASTINUM: No significant abnormality. LUNGS / PLEURA: No significant pulmonary or pleural abnormality.. No pneumothorax. ADDITIONAL FINDINGS: No significant additional findings. IMPRESSION: 1. No acute findings. Signer Name: Goran Dallas MD Signed: 12/02/2019 2:56 AM Workstation Name: [id number]
[2019-12-02 03:07] LABS: Basophils % (Auto) 0.7 % (0.0-1.8); Eosinophils # (Auto) 0.1 K/mm3 (0.0-0.4); Eosinophils % (Auto) 1.4 % (0.0-4.3); Hematocrit 37.1 % (30.3-42.9); Hemoglobin 12.1 gm/dl (10.1-14.3); Lymphocytes # (Auto) 3.3 K/mm3 (1.2-5.4); Lymphocytes % (Auto) 48.1 % (13.4-35.0); Mean Corpuscular HGB Conc 33 % (30-34); Mean Corpuscular Volume 85 fl (79-97); Monocytes # (Auto) 0.5 K/mm3 (0.0-0.8); Monocytes % (Auto) 7.6 % (0.0-7.3); Platelet Count 327 K/mm3 (140-440); Red Blood Count 4.35 M/mm3 (3.65-5.03); Red Cell Distribution Width 14.6 % (13.2-15.2)
[2019-12-02 03:12] LABS: Alanine Aminotransferase 18 units/L (7-56); Albumin 4.6 g/dL (3.9-5); Blood Urea Nitrogen 13 mg/dL (7-17); Hemolysis Index 5
[2019-12-02 03:15] LABS: BUN/Creatinine Ratio 22
[2019-12-02 04:26] VITALS: BP 185/90
== END 2019-12-02 04:15 | disposition home or self-care (01) ==
LOC: ED 21:22
DX: I10 Essential (primary) hypertension (principal); F43.9 Reaction to severe stress, unspecified; Z86.73 Personal history of transient ischemic attack (TIA), and cerebral infarction without residual deficits; E11.9 Type 2 diabetes mellitus without complications; Z79.82 Long term (current) use of aspirin; Z79.899 Other long term (current) drug therapy; Z90.49 Acquired absence of other specified parts of digestive tract; Z98.890 Other specified postprocedural states
CPT/HCPCS: 36415; 71046; 80053; 84484; 85025; 93005; 99283